=== PATIENT | female | born 1935 | race Caucasian/White ===

== ENCOUNTER → 2016-07-10 | Day surgery (SDC) | payer MEDICARE, OTHER ==
[~2016-07-10] VITALS: Ht 157.5 cm; Wt 49.5 kg
[~2016-07-10] MED LIST: ASCORBIC ACID500 MG PO; AZELASTINE137 MCG/0. NOSE; B COMPLETE1 EACH PO; COLACE100 MG PO; COUMADIN ** IA5 MG PO; COUMADIN **IA10 MG PO; COUMADIN **IA7.5 MG PO; FISH OIL 1,2001 EACH PO; FISH OIL1000 MG PO; GARLIC OIL1000 MG PO; LEVOTHROID (SY50 MCG PO; LOPRESSOR25 MG PO; LOVENOX 4040 MG/0.4 SUB-Q; LUTEIN20 M1 PO; METAMUCIL PACKE1 PKT PO; MIRALAX17 GM PO; NORCO 5-325 MG1 TAB PO; NORCO 5-325 TA1 EACH PO; NORVASC5 MG PO; OMEGA 3 PO; OSCAL + D500 MG PO; PEPCID20 MG PO; PROLIA60 MG/ML SUB-Q; PROTONIX40 MG PO; PSYLLIUM HUSK PO; SENNA-S TABLET1 EACH PO; SENOKOT S (S1 TABLET PO; TEARGEN1 BOT OPHTH; THERA-VITE W/ B1 TAB PO; TUMS REGULAR ST1 TAB PO; VITAMIN D1000 UNIT PO; VITAMIN E400 UNI2 PO; ZANTAC300 MG PO; ZESTRIL40 MG PO; ZOFRAN4 MG PO; [UNRECOGNIZED DRUG - OTHER] NS
--- NOTE | ~2016-07-10 | OR ---
PATIENT'S NAME: MIKE [facility] AGE: 80 Y [address] ROOM: [place] [id number] [place]: [facility] [place] ADMIT DATE: 07/10/2016 OR/Procedure Report DISCHARGE DATE: FAMILY PHYSICIAN: Alessandra Burton MD ATTENDING PHYSICIAN: Shade Okeefe SURGEON: Shade Okeefe MD [employer] INSTALLER: Carlos Luong PA-C DATE OF PROCEDURE: 07/10/2016 PREOPERATIVE DIAGNOSES: 1. End-stage renal disease. 2. Right groin hernia. 3. Umbilical hernia. POSTOPERATIVE DIAGNOSES: 1. End-stage renal disease. 2. Umbilical hernia. 3. Right femoral hernia. PROCEDURE: 1. Laparoscopic placement of peritoneal dialysis catheter. 2. Femoral hernia repair with mesh. 3. Primary repair of umbilical hernia. FINDINGS: The PD catheter drained well at the conclusion of the case. The umbilical defect was quite small and able to be repaired primarily. In the groin, a femoral hernia was identified, [id number] defect and was repaired with mesh. ESTIMATED BLOOD LOSS: Less than 50 mL. COMPLICATIONS: None. INDICATIONS FOR PROCEDURE: The patient is an 80-year-old female, who had presented with end-stage renal disease, was hoping to have peritoneal dialysis performed. On her examination, she was also found to have a groin hernia as well as an umbilical hernia which we felt needed to be repaired in order to be able to perform peritoneal dialysis. We discussed both catheter placement as well as hernia repairs. The risks, benefits, and alternatives of each of these which include bleeding, infection, and neurovascular injury. We discussed injury to other viscera, as well as chronic pain. She understood the risks and elected to proceed. DESCRIPTION OF PROCEDURE: The patient was taken to the operating room. She was placed supine. She was given IV sedation and subsequently intubated. Her PATIENT'S NAME: MIKE [facility]ADD[facility] AGE: 80 Y [address] ROOM: [place] [id number] LOCATION: [facility] [place] ADMIT DATE: 07/10/2016 OR/Procedure Report DISCHARGE DATE: FAMILY PHYSICIAN: Alessandra Burton MD ATTENDING PHYSICIAN: Shade Okeefe abdomen was prepped with ChloraPrep and sterilely draped. Local anesthetic was infiltrated in the right abdomen using an optical viewing trocar. The abdominal cavity was entered using a dilating trocar. She had very minimal muscle layer. We entered the abdominal cavity. Pneumoperitoneum was induced. We placed a camera, and there did not appear to be injury to the viscera, however, there was some air beneath the omentum. It was difficult to visualize beneath this, but no staining was present. Once this was completed, the 62 cm curled tip peritoneal dialysis catheter was opened. This was used to measure placement. An incision was created in the lower abdomen just to the left of midline. This was inferior to the umbilicus and carried into the subcutaneous tissue. The fascia was then identified. A pursestring suture was placed in the anterior fascial sheath. An 8-mm trocar was then inserted into the retrorectus space and advanced down to the midline and through the perineum. The curled tip catheter was then introduced through the trocar. The trocar was removed. The catheter was placed in the pelvis. The distal cuff was in the retrorectus space. The trocar was removed. The proximal end of the catheter was then tunneled and brought out through a separate stab incision. We examined the abdominal cavity with the laparoscope. A small umbilical hernia defect was present as well as a right femoral hernia. Left hernia was not visible. The pneumoperitoneum was released. 300 mL of saline were introduced into the abdominal cavity. The peritoneal dialysis catheter was then placed to gravity and 250 mL returned. The umbilical hernia was attended to first. An incision was created just superior to the umbilicus and carried into the subcutaneous tissues. The hernia sac was identified, dissected around circumferentially and reduced. The defect was approximately a centimeter in size. This was closed with interrupted 0 Prolene suture. We then turned our attention to the right groin. An incision was created in the right groin, carried through the subcutaneous tissues. The aponeurosis was identified, able to be seen folding it over, creating the inguinal ligament on the inferior side. The hernia sac was evident, clearly a femoral defect. We were able to dissect around this circumferentially and reduced this. The defect itself was moderate in size. We felt the mesh repair was necessary. A medium ProLoop plug was placed into the defect and was secured to Greg's ligament using 2-0 Prolene suture. It was secured to the inguinal ligament using 2-0 Prolene suture. A portion of the inguinal ligament was able to be brought down to Greg's in order to obtain some soft-tissue coverage over our mesh. This was done with 2-0 Prolene suture. After completion of this, we did feel we had some bulging through the inguinal canal. Because of this, the aponeurosis external oblique was opened. This was inspected, but the hernia defect was not present. The operative field was inspected. The aponeurosis of the external oblique was closed with 2-0 Vicryl suture. Lis's fascia was closed with 3-0 Vicryl suture, and the skin closure of the inguinal canal was closed with 4-0 Monocryl suture. The trocar had also been removed. The other 3 incisions were also closed with 4-0 Monocryl suture. The peritoneal dialysis catheter was then flushed with 10 mL of heparinized saline. The PATIENT'S NAME: MIKE [facility] AGE: 80 Y [address] ROOM: [place] [id number] LOC[place]: [facility] [place] ADMIT DATE: 07/10/2016 OR/Procedure Report DISCHARGE DATE: FAMILY PHYSICIAN: Alessandra Burton MD ATTENDING PHYSICIAN: Shade Okeefe transfer set was placed. Sterile dressings were positioned. The patient tolerated this well. SHADE OKEEFE MD BJO/modl /[id number] d: 07/10/16 1343 t: 07/22/16 1811, OPERATIVE SUMMARY
[2016-07-10 07:02] LABS: BASOPHIL % 0.4 %; EOSINOPHIL # 0.1 K/uL (0.0-0.5); EOSINOPHIL % 2.2 %; HEMATOCRIT 30.5 % (30.0-46.0); HEMOGLOBIN 10.2 g/dL (10.0-15.0); IMMATURE GRANULOCYTE % 0.6 %; LYMPHOCYTE # 1.3 K/uL (0.8-4.0); LYMPHOCYTE % 27.5 %; MCH 36.8 pg (27.0-34.0); MCHC 33.4 gm/dL (32.0-36.5); MCV 110.1 fl (83.0-98.0); MONOCYTE # 0.5 K/uL (0.0-1.0); MONOCYTE % 11.6 %; NEUTROPHIL # (ANC) 2.7 K/uL (1.8-7.8); NEUTROPHIL % 57.7 %; NRBC % 0 /100WBC (0-0.00); PLATELET COUNT 168 K/uL (150-450); RBC 2.77 M/uL (3.00-5.00); RDW-CV 12.2 % (11.9-14.6); WBC 4.7 K/uL (4.0-11.0)
[2016-07-10 07:15] LABS: ANION GAP 12.8 (10.0-19.0); CALCIUM 8.4 mg/dL (8.5-10.5); CREATININE 2.9 mg/dL (0.5-1.1); POTASSIUM 3.8 mMol/L (3.7-5.1)
[2016-07-10 07:19] LABS: INR - (THERAPEUTIC) 1.02 (0.92-1.07); PROTIME 10.7 SECONDS (9.8-11.4)
== END ==
LOC: GPOC 07-08 11:00 → GSDC 05:51
PROVIDERS: Surgery
PROC: 0WHG43Z Insertion of Infusion Device into Peritoneal Cavity, Percutaneous Endoscopic Approach (ICD-10-PCS; principal; 2016-07-10)
PROC: 0YU70JZ Supplement Right Femoral Region with Synthetic Substitute, Open Approach (ICD-10-PCS; 2016-07-10)
PROC: 0WUF0JZ Supplement Abdominal Wall with Synthetic Substitute, Open Approach (ICD-10-PCS; 2016-07-10)
DX: I12.0 Hypertensive chronic kidney disease with stage 5 chronic kidney disease or end stage renal disease (principal); N18.6 End stage renal disease; K41.90 Unilateral femoral hernia, without obstruction or gangrene, not specified as recurrent; K42.9 Umbilical hernia without obstruction or gangrene; J44.9 Chronic obstructive pulmonary disease, unspecified; M81.0 Age-related osteoporosis without current pathological fracture; Z79.899 Other long term (current) drug therapy; Z88.8 Allergy status to other drugs, medicaments and biological substances
CPT/HCPCS: C1750; C1781; C1881; J0690; J1100; J1642; J2405; J7030